=== PATIENT | female | born 1945 | race African-American/Black ===

== ENCOUNTER 2018-04-30 10:20 | Outpatient (CLI) | payer MEDICARE | END 2018-04-30 10:21 | disposition home or self-care (01) | LOC: BICMAMMO 10:20 | PROVIDERS: ATTEND Family Medicine | DX: Z12.31 Encounter for screening mammogram for malignant neoplasm of breast (principal); R92.1 Mammographic calcification found on diagnostic imaging of breast; Z80.3 Family history of malignant neoplasm of breast | CPT/HCPCS: 77063; 77067 ==

== ENCOUNTER 2022-02-22 09:13 | Outpatient (CLI) | payer MEDICARE | END 2022-02-22 09:14 | disposition home or self-care (01) | LOC: BICMAMMO 09:13 | PROVIDERS: ATTEND Family Medicine | DX: Z13.820 Encounter for screening for osteoporosis (principal); M85.89 Other specified disorders of bone density and structure, multiple sites | CPT/HCPCS: 77080 ==

== ENCOUNTER 2022-06-22 09:11 | Outpatient (CLI) | payer MEDICARE | END 2022-06-22 09:12 | disposition home or self-care (01) | LOC: BICMAMMO 09:11 | PROVIDERS: ATTEND Family Medicine | DX: N63.21 Unspecified lump in the left breast, upper outer quadrant (principal) | CPT/HCPCS: 76642; 77066; G0279 ==

== ENCOUNTER 2023-04-03 07:36 | Outpatient (CLI) | payer MEDICARE | END 2023-04-03 07:37 | disposition home or self-care (01) | LOC: BICMRI 07:36 | PROVIDERS: ATTEND Orthopaedic Surgery | DX: M23.92 Unspecified internal derangement of left knee (principal); S83.232A Complex tear of medial meniscus, current injury, left knee, initial encounter; M25.462 Effusion, left knee; M66.0 Rupture of popliteal cyst ==